=== PATIENT | male | born 2000 | race Caucasian/White ===

== ENCOUNTER 2018-11-07 07:17 | Emergency (ER) | payer SELFPAY ==
[2018-11-07] MEDS ORDERED: Bacitracin Oint 1 GM U/D Packet TOP ONE (07:49)
[2018-11-07] MEDS ORDERED: Proparacaine 0.5% Ophth Soln 15 ML Bottle EYEBOTH STA (07:49)
[2018-11-07] MEDS ORDERED: fentaNYL 100 MCG/2 ML SDV IVPUSH ONE ×2 (08:33→09:22)
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
[2018-11-07] MEDS: Sodium Chloride 0.9% 10 ML Syringe FLUSH PRN ×3 (08:59→10:20)
[2018-11-07] MEDS ORDERED: Ondansetron 4 MG/2 ML SDV IVPUSH ONE (09:12)
[2018-11-07] MEDS ORDERED: Ketamine 500 MG/5 ML MDV IV ONE ×2 (09:22→09:45)
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
[2018-11-07] MEDS ORDERED: LORazepam 2 MG/ML SDV IVPUSH ONE (10:11)
[2018-11-07 10:22] VITALS: BP 129/82
== END 2018-11-07 10:35 ==
LOC: JP.ED 07:17
DX: S01.312A Laceration without foreign body of left ear, initial encounter (principal); S01.01XA Laceration without foreign body of scalp, initial encounter; H05.231 Hemorrhage of right orbit; Y04.0XXA Assault by unarmed brawl or fight, initial encounter
CPT/HCPCS: 70450; 70486; 96374; 96375; 96376; 99284; A9270; J2060; J2405; J3010; J2001